=== PATIENT | female | born 1960 | race Caucasian/White ===

== ENCOUNTER 2019-06-20 04:19 | Emergency (ER) | payer BC ==
[2019-06-20] MEDS ORDERED: ALBUTEROL SULFATE HFA (90 MCG/PUFF) 8 GM MDI (1 MDI/ER DISP) IH ONE (06:47)
[2019-06-20] MEDS ORDERED: DEXAMETHASONE SOD PHOS INJ 10 MG/1 ML VIAL IM ONE (06:47)
[2019-06-20] MEDS ORDERED: ONDANSETRON HCL INJ/PF 4 MG/2 ML SDV IV ONE ×2 (06:49→10:28)
[2019-06-20] MEDS ORDERED: NORMAL SALINE 1000 ML 1,000 ML IV ONE (06:49)
--- NOTE | 2019-06-20 06:55 | ER Document Report ---
ED General - General Chief Complaint: Nausea/Vomiting/Diarrhea Stated Complaint: VOMITING/TROUBLE BREATHING Time Seen by Provider: 06/20/19 06:31 Notes: 59-year-old female presents emergency department complaining of abdominal cramping starting Saturday, vomiting starting and then diarrhea starting on Saturday with persistent vomiting. Denies any blood in the emesis or in the stool. Admits fevers to T-max of 103.5 associated with chills and diaphoresis. Also complains of rhinorrhea. Not exposed to anybody with similar symptoms and has not had similar episodes in the past. TRAVEL OUTSIDE OF THE [place] IN LAST 30 DAYS: No - Related Data Allergies/Adverse Reactions: No Known Allergies Allergy (Unverified 06/20/19 07:17) Past Medical History - General Information source: Patient - Social History Smoking Status: Never Smoker Frequency of alcohol use: None Drug Abuse: None Family History: Reviewed & Not Pertinent Patient has suicidal ideation: No Patient has homicidal ideation: No Review of Systems - Review of Systems Constitutional: See HPI EENT: No symptoms reported Cardiovascular: No symptoms reported Gastrointestinal: See HPI -: Yes All other systems reviewed and negative Physical Exam - Vital signs Vitals: Temp Pulse Resp BP Pulse Ox 98.4 F 101 H 16 131/67 H 95 06/20/19 04:24 06/20/19 04:24 06/20/19 04:24 06/20/19 04:24 06/20/19 04:24 Interpretation: Tachycardic - Notes Notes: GENERAL: Alert, interacts well. No acute distress. HEAD: Normocephalic, atraumatic EYES: Pupils equal, round and reactive to light, extraocular movements intact. ENT: Oral mucosa moist, tongue midline. NECK: Full range of motion, supple, trachea midline. LUNGS: Clear to auscultation bilaterally, no wheezes, rales or rhonchi, no respiratory distress. HEART: Regular rate and rhythm, no murmurs, gallops, rubs. ABDOMEN: Soft, bilateral lower quadrant tenderness to palpation with no guarding, rigidity or rebounding, nondistended, bowel sounds present in all 4 quadrants. EXTREMITIES: Moves all 4 extremities spontaneously, no edema, radial and dorsalis pedis pulses 2/4 bilaterally. No cyanosis. NEUROLOGICAL: Alert and oriented x3, normal speech. PSYCH: Normal mood, normal affect. SKIN: Warm, Dry, normal turgor, no rashes or lesions noted. Course - Re-evaluation Re-evalutation: 06/20/19 10:29 CBC unremarkable, CMP shows slight low potassium at 3.4, flu swabs negative, CT scan of the abdomen pelvis does not show any signs of surgical pathology or diverticulitis. Patient tolerating ice chips well, will try fluids and crackers after more Zofran, treat with Imodium, send stool sample. 06/20/19 12:15 Patient has been able to tolerate food, given Imodium and she did not vomit back up, patient has been unable to provide stool sample. Will be discharged home with stool specimen ordered, advised to use Imodium, Zofran. - Vital Signs Vital signs: Temp Pulse Resp BP Pulse Ox 98.4 F 101 H 16 131/67 H 95 06/20/19 04:24 06/20/19 04:24 06/20/19 04:24 06/20/19 04:24 06/20/19 04:24 - Laboratory Result Diagrams: 06/20/19 07:30 06/20/19 07:30 Laboratory results interpreted by me: 06/20/19 06/20/19 07:30 07:30 RDW 14.7 H Potassium 3.4 L Creatinine 0.50 L Glucose 119 H Alkaline Phosphatase 134 H Discharge - Discharge Clinical Impression: Nausea vomiting and diarrhea Condition: Stable Disposition: HOME, SELF-CARE Additional Instructions: I do not know what is causing your nausea, vomiting and diarrhea today. We did not find any signs of intestinal infection requiring antibiotics or surgery. Please use Imodium as directed on the box [id number]. You may use the Zofran and the Phenergan to help with your nausea. If you have another liquid bowel movement please bring it to the hospital for analysis along with the lab tests that I have ordered. Return for blood in your stool, increasing vomiting or diarrhea, increasing pain or any new or concerning symptoms. Prescriptions: Promethazine HCl [Phenergan 25 mg Tablet] 1 - 2 tab PO Q6H PRN #15 tablet PRN Reason: Ondansetron [Zofran Odt 4 mg Tablet] 1 - 2 tab PO Q4H PRN #15 tab.rapdis PRN Reason: For Nausea/Vomiting Forms: Follow-Up Laboratory Testing
[2019-06-20 07:44] LABS: ABSOLUTE EOSINOPHILS # (AUTO) 0.1 10^3/uL (0.0-0.6); ABSOLUTE LYMPHOCYTES (AUTO) 1.3 10^3/uL (0.5-4.7); ABSOLUTE MONOCYTES (AUTO) 0.5 10^3/uL (0.1-1.4); ABSOLUTE NEUT (AUTO) 4.2 10^3/uL (1.7-8.2); BASOPHILS % (AUTO) 0.7 % (0-2); EOSINOPHILS % (AUTO) 1.1 % (0-6); HEMATOCRIT 44.5 % (36.0-47.0); HEMOGLOBIN 14.7 g/dL (12.0-15.5); LYMPHOCYTES % (AUTO) 20.7 % (13-45); MEAN CORPUSCULAR HEMOGLOBIN 28.9 pg (27.0-33.4); MEAN CORPUSCULAR VOLUME 88 fl (80-97); MONOCYTES % (AUTO) 8.3 % (3-13); PLATELET COUNT 312 10^3/uL (150-450); RED BLOOD COUNT 5.08 10^6/uL (3.72-5.28); RED CELL DISTRIBUTION WIDTH 14.7 % (11.5-14.0); SEGMENTED NEUTROPHILS % (AUTO) 69.2 % (42-78); TOTAL CELLS COUNTED % (AUTO) 100 %; WHITE BLOOD COUNT 6.1 10^3/uL (4.0-10.5)
[2019-06-20 08:00] LABS: ALKALINE PHOSPHATASE 134 U/L (38-126); ANION GAP 9 (5-19); ASPARTATE AMINO TRANSFERASE 26 U/L (14-36); BILIRUBIN,DIRECT 0.3 mg/dL (0.0-0.4); BILIRUBIN,TOTAL 0.5 mg/dL (0.2-1.3); BLOOD UREA NITROGEN 9 mg/dL (7-20); CALCIUM 9.2 mg/dL (8.4-10.2); CARBON DIOXIDE 28 mmol/L (22-30); CHLORIDE 100 mmol/L (98-107); GLUCOSE 119 mg/dL (75-110); POTASSIUM 3.4 mmol/L (3.6-5.0); TOTAL PROTEIN 6.6 g/dL (6.3-8.2)
--- NOTE | 2019-06-20 09:56 | RADIOLOGY REPORT (SQ) ---
EXAM DESCRIPTION: CT ABD/PELVIS WITH IV ONLY COMPLETED DATE/TIME: 06/20/2019 9:23 am REASON FOR STUDY: LLQ and RLQ abd pain COMPARISON: None. TECHNIQUE: CT scan of the abdomen and pelvis performed using helical scanning technique with dynamic intravenous contrast injection. No oral contrast. Images reviewed with lung, soft tissue, and bone windows. Reconstructed coronal and sagittal MPR images reviewed. Delayed images for evaluation of the urinary system also acquired. All images stored on PACS. All CT scanners at this facility use dose modulation, iterative reconstruction, and/or weight based d osing when appropriate to reduce radiation dose to as low as reasonably achievable (ALARA). [facility]: Dose Right [facility]: CareDose [facility]: Dose Right [facility]: Teradose 4D [facility]: [employer] CONTRAST TYPE AND DOSE: contrast/concentration: Isovue mg/ml; Total Contrast Delivered: 99.0 ml; To ayesha Saline Delivered: 72.0 ml RENAL FUNCTION: GFR > 60. RADIATION DOSE: CT Rad equipment meets quality standard of care and radiation dose reduction techniq ues were employed. CTDIvol: 15.6 - 18.6 mGy. DLP: 1710 mGy-cm.. LIMITATIONS: None. FINDINGS: LOWER CHEST: Hiatal hernia. LIVER: Normal size. No masses. No dilated ducts. SPLEEN: Normal size. No focal lesions. PANCREAS: No masses. No significant calcifications. No adjacent inflammation or peripancreatic fluid collections. Pancreatic duct not dilated. GALLBLADDER: No identified stones by CT criteria. No inflammatory changes to suggest cholecystitis. ADRENAL GLANDS: No significant masses or asymmetry. RIGHT KIDNEY AND URETER: No solid masses. No significant calcifications. No hydronephrosis or hyd roureter. LEFT KIDNEY AND URETER: No solid masses. No significant calcifications. No hydronephrosis or hydr oureter. AORTA AND VESSELS: No aneurysm. RETROPERITONEUM: No retroperitoneal adenopathy, hemorrhage or masses. BOWEL AND PERITONEAL CAVITY: Sigmoid diverticulosis. No masses or inflammatory changes. No free flui d or peritoneal masses. APPENDIX: Normal. PELVIS: No mass. No free fluid. Normal bladder. ABDOMINAL WALL: No masses. No hernias. BONES: No significant or acute findings. OTHER: No other significant finding. IMPRESSION: Diverticulosis without evidence of diverticulitis. TECHNICAL DOCUMENTATION: JOB ID: [id number] Quality ID # [id number]: Final reports with documentation of one or more dose reduction techniques (e.g., Au tomated exposure control, adjustment of the mA and/or kV according to patient size, use of iterative reconstruction technique) 2010 [employer]- All Rights Reserved Reading location - IP/workstation name: [email or web address]
[2019-06-20 10:02] LABS: A TYPE INFLUENZA AG NEGATIVE (NEGATIVE); B INFLUENZA AG NEGATIVE (NEGATIVE)
[2019-06-20] MEDS ORDERED: LOPERAMIDE HCL 2 MG CAPSULE PO ONE (10:28)
[2019-06-20 12:52] VITALS: BP 153/96
== END 2019-06-20 12:52 | disposition home or self-care (01) ==
LOC: ER 04:19
DX: R11.2 Nausea with vomiting, unspecified (principal); R19.7 Diarrhea, unspecified; R10.9 Unspecified abdominal pain; R50.9 Fever, unspecified; R61 Generalized hyperhidrosis
CPT/HCPCS: 36415; 85025; 80053; 87804; 74177; J2405; J7030; 96361; 96374; 96376; 99284

== ENCOUNTER → 2019-12-02 | Outpatient (CLI) | payer BC ==
--- NOTE | 2019-12-02 13:40 | RADIOLOGY REPORT (SQ) ---
EXAM DESCRIPTION: FOOT LEFT COMPLETE COMPLETED DATE/TIME: 12/02/2019 1:12 pm REASON FOR STUDY: LT FOOT PAIN M79.672 PAIN IN LEFT FOOT COMPARISON: None. NUMBER OF VIEWS: Three views. TECHNIQUE: AP, lateral and oblique without weight bearing radiographic images acquired of the left f oot. LIMITATIONS: None. FINDINGS: MINERALIZATION: Normal. BONES: No acute fracture or dislocation. No worrisome bone lesions. No significant osteophytes. JOINTS: No erosions. No jorge-articular osteopenia. No chondrocalcinosis. SOFT TISSUES: No swelling. No calcifications. OTHER: No other significant finding. IMPRESSION: NEGATIVE STUDY OF THE LEFT FOOT. NO EXPLANATION FOR PAIN. TECHNICAL DOCUMENTATION: JOB ID: [id number] 2010 [employer]- All Rights Reserved Reading location - IP/workstation name: [email or web address]
== END ==
LOC: OD 12:38
PROVIDERS: ATTEND Nurse Practitioner Family
DX: M79.672 Pain in left foot (principal)

== ENCOUNTER → 2020-01-05 | Outpatient (CLI) | payer SELFPAY ==
--- NOTE | 2020-01-05 09:43 | ER [facility] ASSESSMENT REPORT ---
Intake - In the Last 14 days Have you traveled outside [place]?: No Have you been in close contact with someone CONFIRMED: No Worked in Healthcare?: No - Symptoms Subjective Fever([place] feverish): Yes Chills: No Muscule Aches: No Runny Nose: No Sore Throat: Yes Cough (New or worsening chronic cough): Yes Shortness of breath: Yes Nausea or Vomiting: No Headache: Yes Abdominal Pain: No Diarrhea(3 or more loose stools in last 24 hours): No - Do you have any of the following Chronic lung disease: Asthma or emphysema or COPD: No Cystic Fibrosis: No Diabetes: No High Blood Pressure: Yes Cardiovascular Disease: Yes Chronic Kidney Disease: No Chronic Liver Disease: No Chronic blood disorder like Sickle Cell Disease: No Weak immune system due to disease or medication: No Neurologic condition that limits movement: No Developmental delay - Moderate to Severe: No Recent (within past 2 weeks) or current : No Morbid Obesity (>100 pounds over ideal weight): No - Objective Temperature: 96.3 F Pulse Rate: 97 Respiratory Rate: 20 Blood Pressure: 194/84 O2 Sat by Pulse Oximetry: 94 Objective: Given above, testing performed: If Testing Performed: Test Specimen Type Sent to General - General Information source: Patient Notes: Patient presents to the [facility] with upper respiratory symptoms for evaluation and screening of possible coronavirus. She reports fever as high as 103 with sore throat cough and shortness of breath. Patient reports occasional headache. Patient does have underlying history of hypertension. Patient is a former smoker quitting 18 years ago. - HPI Quality of pain: Achy Associated symptoms: Chills, Nonproductive cough, Fever, Nausea, Shortness of breath, Sore throat. denies: Diarrhea Exacerbated by: Denies Relieved by: Denies - Related Data Allergies/Adverse Reactions: No Known Allergies Allergy (Unverified 06/20/19 07:17) Past Medical History - General Information source: Patient - Social History Smoking Status: Former Smoker Lives with: Spouse/Significant other Family History: Reviewed & Not Pertinent - Past Medical History Cardiac Medical History: Reports: Hx Hypertension Endocrine Medical History: Reports: Hx Hypothyroidism Malignancy Medical History: Reports: Other - Uterine Psychiatric Medical History: Reports: Hx Depression Past Surgical History: Reports: Hx Hysterectomy, Hx Orthopedic Surgery Physical Exam - General General appearance: Appears well, Alert In distress: None - HEENT Head: Normocephalic, Atraumatic Eyes: Normal Conjunctiva: Normal Nasal: Normal Mouth/Lips: Normal Mucous membranes: Normal Pharynx: Normal. No: Erythema, Exudate, Tonsillar hypertrophy Neck: Normal, Supple. No: Lymphadenopathy - Respiratory Respiratory status: No respiratory distress Chest status: Nontender Breath sounds: Nonproductive cough, Wheezing Chest palpation: Normal - Cardiovascular Rhythm: Regular Heart sounds: S1 appreciated, S2 appreciated - Extremities General upper extremity: Normal inspection, Normal ROM General lower extremity: Normal inspection, Normal ROM - Neurological Neuro grossly intact: Yes Cognition: Normal Hector Coma Scale Eye Opening: Spontaneous Hector Coma Scale Verbal: Oriented [place] Coma Scale Motor: Obeys Commands [place] Coma Scale Total: 15 - Psychological Associated symptoms: Normal affect, Normal mood - Skin Skin Temperature: Warm Skin Moisture: Dry Skin Color: Normal Diagnostic Results Laboratory Results: The patient was evaluated during the global Covid 19 pandemic, and that diagnosis was suspected/considered upon their initial presentation. Their evaluation, treatment and testing was consistent with current guidelines for patients who present with complaints or symptoms that may be related to Covid 19. Patient presents with upper respiratory symptoms worrisome for possible Covid 19. Patient does not have emergency worrying symptoms such as difficulty breathing, shortness of breath, chest pain, pressure, confusion or cyanosis. Patient appears suitable for discharge as she is not hypoxic or tachycardic. Patient is hypertensive although reports taking her medication earlier this morning. Patient is nontoxic in appearance. Will send prescription for albuterol and prednisone to pharmacy for patient scattered wheezing. Good return precautions have been discussed with patient, patient verbalized understanding and is agreeable with discharge plan of care at this time. Patient Education/Counseling Counseling/Education: Patient was provided with discharge information including: As a person under investigation for Covid 19, the [place] department of Health and Human Services, division of public health advises you to adhere to the following guidance until your test results are reported to you. If your test result is positive, you will receive additional information from your provider and your local health department at that time. Remain at home until you are cleared by the health provider or public health authorities. Keep a log of visitors to your home, notify any visitors to your home of your isolation status. If you plan to move to a new address or leave the county, notify the local health department in your County. Call your doctor or seek care if you have an urgent medical need. Before seeking medical care, call ahead to get instructions from the provider before arriving at the medical office clinic or hospital. Notify them that you are being tested for the virus that causes Covid 19 so that arrangements can be made, as necessary, to prevent transmission to others in the healthcare setting. Next, notify the local health department in your county. If a medical emergency arises and you need to call 911, inform the first responders that you are being tested for the virus that causes Covid 19. Next, notify the local health department in your county. [facility] Discharge - Discharge Clinical Impression: covid 19 screening Upper respiratory infection Qualifiers: URI type: unspecified URI Qualified Code(s): J06.9 - Acute upper respiratory infection, unspecified Condition: Stable Disposition: Home; Selfcare
[2020-01-05 09:48] VITALS: BP 194/84
[2020-01-05 10:30] LABS: A TYPE INFLUENZA AG NEGATIVE (NEGATIVE); B INFLUENZA AG NEGATIVE (NEGATIVE)
== END ==
LOC: RDC 09:06
PROVIDERS: ATTEND Nurse Practitioner Family
DX: Z20.828 Contact with and (suspected) exposure to other viral communicable diseases (principal)
CPT/HCPCS: 87070; 87635; 87804; 87880

== ENCOUNTER → 2020-07-25 | Outpatient (CLI) | payer BC ==
--- NOTE | 2020-07-25 17:02 | RADIOLOGY REPORT (SQ) ---
EXAM DESCRIPTION: SHOULDER RIGHT 2 OR MORE VIEWS IMAGES COMPLETED DATE/TIME: 07/25/2020 3:39 pm REASON FOR STUDY: ACUTE PAIN OF RT SHOULDER M25.511 PAIN IN RIGHT SHOULDER COMPARISON: None. NUMBER OF VIEWS: Three views. TECHNIQUE: Internal rotation, external rotation, and Y view images acquired of the right shoulder. LIMITATIONS: None. FINDINGS: MINERALIZATION: Normal. BONES: No acute fracture. No worrisome bone lesions. No significant osteophytes. GLENOHUMERAL JOINT: No significant findings. ACROMIOCLAVICULAR JOINT: No large osteophytes. SOFT TISSUES: No calcifications. VISUALIZED RIBS, SPINE, AND LUNG: No other significant finding. OTHER: No other significant finding. IMPRESSION: NEGATIVE STUDY OF THE RIGHT SHOULDER. NO EXPLANATION FOR PAIN. TECHNICAL DOCUMENTATION: JOB ID: [id number] 2010 [employer]- All Rights Reserved Reading location - IP/workstation name: [email or web address]
== END ==
LOC: OD 14:34
PROVIDERS: ATTEND Nurse Practitioner Family
DX: M25.511 Pain in right shoulder (principal)

== ENCOUNTER 2020-08-25 16:52 | Emergency (ER) | payer BC ==
[2020-08-25] MEDS ORDERED: ALBUTEROL SULFATE 0.083% NEB 2.5 MG/3 ML AMPUL NEB ONE (17:21)
--- NOTE | 2020-08-25 17:38 | ER Document Report ---
ED Medical Screen (RME) - General Chief Complaint: Shortness Of Breath Stated Complaint: SHORT OF BREATH,COUGH Time Seen by Provider: 08/25/20 17:16 Primary Care Provider: TERRY BECERRA FNP [Primary Care Provider] - Follow up as needed TRAVEL OUTSIDE OF THE [place] IN LAST 30 DAYS: No - HPI Notes: 08/25/20 17:37 60-year-old female presents to ED for evaluation of increased shortness of breath. Patient reports it is painful when she coughs. Notes that she checked her oxygen and it was low. She denies any cardiac or pulmonary history. Patient states that she does not believe she was exposed to anybody with Covid. She notes a fever at home. Denies any other complaints. - Related Data Allergies/Adverse Reactions: No Known Allergies Allergy (Unverified 06/20/19 07:17) Home Medications: synthroid. wellbutrin. losartom. atrovastatin Past Medical History - Social History Chew tobacco use (# tins/day): No Frequency of alcohol use: None Drug Abuse: None - Past Medical History Cardiac Medical History: Reports: Hx Hypertension Endocrine Medical History: Reports: Hx Hypothyroidism Psychiatric Medical History: Reports: Hx Depression Past Surgical History: Reports: Hx Hysterectomy, Hx Orthopedic Surgery Physical Exam - Vital signs Vitals: Temp Pulse Resp BP Pulse Ox 98.8 F 105 H 24 H 115/78 89 L 08/25/20 16:59 08/25/20 16:59 08/25/20 16:59 08/25/20 16:59 08/25/20 16:59 General: No acute distress. Alert and oriented x3. Sitting comfortably in a stretcher. Skin: Intact without any jaundice, pallor, or erythema. Warm and dry. HEENT: Normocephalic, atraumatic. Pupils are equal round reactive to light and accommodation. Extraocular movements are intact. TMs without erythema or bulging. Canals are clear. Nares patent without any discharge. Teeth in good condition. Pharynx without erythema, edema, or exudates. No tonsillar enlargement. Uvula is midline. Airway is patent. Neck: Supple with no lymphadenopathy. Full range of motion. Heart: Regular rate and rhythm. S1,S2. No murmurs, rubs, or gallops. Lungs: Diminished bases. No wheezes, rhonchi, rales. Equal chest expansion. No retractions. Abdomen: Soft, nontender to palpation, nondistended. Positive bowel sounds in all 4 quadrants. No hepatosplenomegaly. No masses. No CVA tenderness bilaterally. Neuro: GCS 15. Moving all extremities without discomfort. Psych: Mood and affect appropriate. Course - Vital Signs Vital signs: Temp Pulse Resp BP Pulse Ox 98.8 F 105 H 24 H 115/78 89 L 08/25/20 16:59 08/25/20 16:59 08/25/20 16:59 08/25/20 16:59 08/25/20 16:59 Doctor's Discharge - Discharge Referrals: TERRY BECERRA FNP [Primary Care Provider] - Follow up as needed
--- NOTE | 2020-08-25 18:29 | RADIOLOGY REPORT (SQ) ---
EXAM DESCRIPTION: CHEST SINGLE VIEW IMAGES COMPLETED DATE/TIME: 08/25/2020 6:21 pm REASON FOR STUDY: chest pain COMPARISON: None. EXAM PARAMETERS: NUMBER OF VIEWS: One view. TECHNIQUE: Single frontal radiographic view of the chest acquired. RADIATION DOSE: NA LIMITATIONS: None. FINDINGS: LUNGS AND PLEURA: Patchy opacification in the right mid and lower lung field. MEDIASTINUM AND HILAR STRUCTURES: No masses. Contour normal. HEART AND VASCULAR STRUCTURES: Heart normal in size. Normal vasculature. BONES: No acute findings. HARDWARE: None in the chest. OTHER: No other significant finding. IMPRESSION: Right lower lobe pneumonia. TECHNICAL DOCUMENTATION: JOB ID: [id number] 2010 [employer]- All Rights Reserved Reading location - IP/workstation name: [email or web address]
[2020-08-25 18:48] LABS: ABSOLUTE MONOCYTES (AUTO) 0.5 10^3/uL (0.1-1.4); ABSOLUTE NEUT (AUTO) 7.6 10^3/uL (1.7-8.2); BASOPHILS % (AUTO) 0.4 % (0-2); EOSINOPHILS % (AUTO) 0.2 % (0-6); HEMATOCRIT 38.8 % (36.0-47.0); HEMOGLOBIN 13.2 g/dL (12.0-15.5); LYMPHOCYTES % (AUTO) 10.7 % (13-45); MEAN CORPUSCULAR HEMOGLOBIN 30.1 pg (27.0-33.4); MEAN CORPUSCULAR HGB CONC 34.1 g/dL (32.0-36.0); MEAN CORPUSCULAR VOLUME 88 fl (80-97); MONOCYTES % (AUTO) 5.6 % (3-13); PLATELET COUNT 260 10^3/uL (150-450); RED BLOOD COUNT 4.39 10^6/uL (3.72-5.28); RED CELL DISTRIBUTION WIDTH 13.8 % (11.5-14.0); SEGMENTED NEUTROPHILS % (AUTO) 83.1 % (42-78); TOTAL CELLS COUNTED % (AUTO) 100 %; WHITE BLOOD COUNT 9.2 10^3/uL (4.0-10.5)
[2020-08-25 18:59] LABS: ALBUMIN 3.6 g/dL (3.5-5.0); ALKALINE PHOSPHATASE 98 U/L (38-126); ANION GAP 9 (5-19); ASPARTATE AMINO TRANSFERASE 45 U/L (14-36); BILIRUBIN,DIRECT 0.2 mg/dL (0.0-0.4); BILIRUBIN,TOTAL 0.7 mg/dL (0.2-1.3); BLOOD UREA NITROGEN 14 mg/dL (7-20); CARBON DIOXIDE 30 mmol/L (22-30); CHLORIDE 95 mmol/L (98-107); CREATINE KINASE 50 U/L (30-135); GLUCOSE 119 mg/dL (75-110); POTASSIUM 3.4 mmol/L (3.6-5.0); TOTAL PROTEIN 5.8 g/dL (6.3-8.2)
[2020-08-25 19:14] LABS: TROPONIN I < 0.012 ng/mL
--- NOTE | 2020-08-25 21:29 | EKG REPORT ---
SEVERITY:- NORMAL ECG - SINUS RHYTHM : Confirmed by: Rosey Mera MD 25-Aug-2020 21:28:30
[2020-08-25] MEDS ORDERED: AZITHROMYCIN 250 MG TABLET PO ONE (22:29)
[2020-08-25] MEDS ORDERED: IBUPROFEN 400 MG TABLET PO ONE (22:32)
[2020-08-25] MEDS ORDERED: DEXAMETHASONE 4 MG TABLET PO ONE (22:32)
--- NOTE | 2020-08-25 22:43 | ER Document Report ---
ED General - General Chief Complaint: Shortness Of Breath Stated Complaint: SHORT OF BREATH,COUGH Time Seen by Provider: 08/25/20 17:16 Primary Care Provider: TERRY BECERRA FNP [Primary Care Provider] - Follow up in 3-5 days Notes: 60-year-old female with hypertension, distant history of few types of cancer in remission. Past 8 years presents with approximately 2 days of fatigue with 1 day of right lateral inferior chest pain and a fever of 101 before she came in. Patient endorses a scant dry cough. Patient denies any smoking history, COPD, asthma history, lower extremity edema, recent travel/surgery/tr auma/immobilization, DVT/PE/hypercoagulability history in self or family, exogenous estrogen use, cardiac history, diabetes, HIV, immunocompromise history, vomiting or diarrhea, abdominal pain, drug use TRAVEL OUTSIDE OF THE [place] IN LAST 30 DAYS: No - Related Data Allergies/Adverse Reactions: No Known Allergies Allergy (Unverified 06/20/19 07:17) Home Medications: synthroid. wellbutrin. losartom. atrovastatin Past Medical History - General Information source: Patient, [facility] Records - Social History Smoking Status: Never Smoker Chew tobacco use (# tins/day): No Frequency of alcohol use: None Drug Abuse: None Family History: Reviewed & Not Pertinent - Past Medical History Cardiac Medical History: Reports: Hx Hypertension Endocrine Medical History: Reports: Hx Hypothyroidism Psychiatric Medical History: Reports: Hx Depression Past Surgical History: Reports: Hx Hysterectomy, Hx Orthopedic Surgery Review of Systems - Review of Systems Notes: REVIEW OF SYSTEMS: CONSTITUTIONAL : + fever, chills, or sweats. EENT: Denies recent cold/sinus symptoms, denies throat pain CARDIOVASCULAR: + chest pain, -OPHELIA RESPIRATORY: + cough, + shortness of breath. GASTROINTESTINAL: Denies abdominal pain, nausea/vomiting. GENITOURINARY: Denies difficulty urinating, painful urination. MUSCULOSKELETAL: Denies neck pain, back pain. SKIN: Denies rash or skin lesions. HEMATOLOGIC : Denies easy bruising or bleeding. LYMPHATIC: Denies swollen, enlarged glands. NEUROLOGICAL: Denies headache, denies change in gait. PSYCHIATRIC: Denies anxiety or stress or depression. Physical Exam - Vital signs Vitals: Temp Pulse Resp BP Pulse Ox 98.8 F 105 H 24 H 115/78 89 L 08/25/20 16:59 08/25/20 16:59 08/25/20 16:59 08/25/20 16:59 08/25/20 16:59 - Notes Notes: PHYSICAL EXAMINATION: GENERAL: Well-appearing, well-nourished, spry pleasant talkative middle-aged woman appearing stated age in no acute distress. HEAD: Atraumatic, normocephalic. EYES: Pupils equal round and appropriate constriction, sclera anicteric, conjunctiva are normal. ENT: nares patent, moist mucous membranes. NECK: Normal range of motion, supple without lymphadenopathy LUNGS: Slightly diminished breath sounds on right lower lung field, otherwise clear, no wheezing, good air movement, normal respiratory rate and effort with nasal cannula in place HEART: Regular rate and rhythm without murmurs ABDOMEN: Soft, nontender, no guarding, no masses, no CVAT EXTREMITIES: Normal range of motion, no pitting or edema. No cyanosis. NEUROLOGICAL: Awake, alert, conversing appropriately, moves all extremities spontaneously. PSYCH: Normal mood, normal affect. SKIN: Warm, Dry, normal turgor, no rashes or lesions noted. Course - Re-evaluation Re-evalutation: 08/25/20 22:45 Fever measured at home shortness of breath and cough, patient hypoxic off of nasal cannula on arrival and was given albuterol unclear if this contributed to patient's improvement, will assess patient on room air prior to making disposition decision. Likely pneumonia bacterial versus COVID-19, rule out PE given patient's tachycardia and distant cancer history but low pretest probability. No cardiac history and current symptoms atypical for ACS but given age and risk factors will obtain EKG and troponin. Patient very well-appearing, no signs of impending respiratory failure, mild tachycardia improved without intervention at this time. Patient's D-dimer was positive so I ordered CTA. 08/25/20 23:47 CT limited by suboptimal contrast however able to rule out any large central PEs and given presence of significant infection which is sufficient to explain positive D-dimer and patient's shortness of breath and hypoxia patient is still appropriate for discharge. I trialed patient on room air and patient is now maintaining saturations of 92 to 93% on room air. Patient's work of breathing is normal her rate of breathing is normal and patient feels significantly improved and desires discharge. Patient seemed to have improved on albuterol prior to arrival and therefore will set her with albuterol pump and gave dose of steroids in ED. Patient has pulse oximeter at home and I instructed her to closely watch her symptoms and if she feels worse at any point or if the pulse ox drops below 90% while she is at rest then she will come back to the emergency department immediately. Patient looks forward to discharge and is in agreement with follow-up and return to ED precautions and denies having any other questions or concerns at this time. Given that patient showed some bronchiectasis on CTA I changed her antibiotic coverage to Levaquin. CTA findings could also be due to COVID-19 infection which I also explained to patient. - Vital Signs Vital signs: Temp Pulse Resp BP Pulse Ox 98.3 F 105 H 24 H 107/93 H 91 L 08/26/20 00:10 08/25/20 16:59 08/26/20 00:10 08/26/20 00:10 08/26/20 00:10 - Laboratory Results Result Diagrams: 08/25/20 18:26 08/25/20 18:26 Laboratory Results Interpreted: 08/25/20 08/25/20 08/25/20 18:26 18:26 18:26 Lymph % (Auto) 10.7 L Seg Neutrophils % 83.1 H D-Dimer 1.41 H Sodium 134.1 L Potassium 3.4 L Chloride 95 L Creatinine 0.48 L Glucose 119 H AST 45 H ALT 42 H Total Protein 5.8 L Critical Laboratory Results Reviewed: No Critical Results - Radiology Results Critical Radiology Results Reviewed: No Critical Results - EKG Interpretation by Me Additional EKG results interpreted by me: 08/25/20 22:48 Sinus rhythm, no significant ST elevations or depressions, no significant T wave abnormalities Discharge - Discharge Clinical Impression: Hypoxia Pneumonia Qualifiers: Pneumonia type: due to unspecified organism Laterality: right Lung location: lower lobe of lung Qualified Code(s): J18.9 - Pneumonia, unspecified organism Disposition: HOME, SELF-CARE Additional Instructions: Levofloxacain You have been given an antibacterial agent, levofloxacin (Levaquin). This medicine is not related to the penicillins, sulfas, cephalosporins, or tetracyclines. It is often given to patients who are allergic to these drugs. It has been chosen for you either because other drugs are not appropriate, or because of the nature of your problem. Levaquin should not be taken with antacids, as these can decrease its effectiveness. It can be taken without regard to meals. LEVAQUIN SHOULD NOT BE TAKEN BY CHILDREN, NURSING WOMEN, OR WOMEN. Although Levaquin is usually well-tolerated, common side effects can include nausea and diarrhea. Contact your doctor if you experience any unusual symptoms while on this medication, such as joint pain or swelling, shortness of breath, wheezing, faintness, or hives. Patient was provided with discharge information including: As a person under investigation for Covid 19, the Count includes the [facility], division of public health advises you to adhere to the following guidance until your test results are reported to you. If your test result is positive, you will receive additional information from your provider and your local health department at that time. Remain at home until you are cleared by the health provider or public health authorities. Keep a log of visitors to your home, notify any visitors to your home of your isolation status. If you plan to move to a new address or leave the county, notify the local health department in your County. Call your doctor or seek care if you have an urgent medical need. Before seekin g medical care, call ahead to get instructions from the provider before arriving at the medical office clinic or hospital. Notify them that you are being tested for the virus that causes Covid 19 so that arrangements can be made, as necessary, to prevent transmission to others in the healthcare setting. Next, notify the local health department in your county. If a medical emergency arises and you need to call 911, inform the first responders that you are being tested for the virus that causes Covid 19. Next, notify the local health department in your county. Pneumonia Your examination indicates that you have pneumonia. This is an infection of the lung tissue, usually caused by bacteria or a virus. Symptoms include cough, fever, shaking chills, chest pain, shortness of breath, and coughing up bloody sputum. Treatment for bacterial pneumonia includes rest, antibiotics, increasing your clear liquid intake, a cool mist humidifier at your bedside, and fever medication. You should call the physician if you develop persistent vomiting, high fever that does not respond to fever medication, increasing shortness of breath, confusion, or lethargy. Also, failure to improve within two to three days is an indication for re-examination. Take all antibiotics as prescribed. Follow-up with your primary doctor within 3 days. If you have any worsening shortness of breath or your pulse oximeter shows readings below 90% while you are at rest, or you have any other worsening symptoms return to the emergency department immediately. Use albuterol inhaler with spacer every 4 hours as needed for shortness of breath if you feel improved after using it. You had some abnormalities on your lung imaging and it is very important that you follow-up with your primary doctor when you feel better to make sure that there is no underlying lung disease that led to this infection. Prescriptions: Inhaler, Assist Devices [Space Chamber] 1 each MC Q4HP PRN #1 spacer PRN Reason: Levofloxacin [Levaquin 750 mg Tablet] 750 mg PO DAILY #4 tablet Albuterol Sulfate [Proair HFA Inhalation Aerosol 8.5 gm MDI] 2 puff IH Q4H PRN #1 mdi PRN Reason: Referrals: TERRY BECERRA FNP [Primary Care Provider] - Follow up in 3-5 days
--- NOTE | 2020-08-25 23:20 | RADIOLOGY REPORT (SQ) ---
EXAM DESCRIPTION: CT CHEST WITH INTRAVENOUS CONTRAST CLINICAL HISTORY: Chest pain, positive d-dimer COMPARISON: None available. TECHNIQUE: CT of the chest was performed with intravenous contrast using pulmonary embolism protocol, followed by CTA of the pulmonary arterial vasculature, with 3D reconstruction of the pulmonary arterial vasculature. The patient was injected with 100 mL Omnipaque [address] exam was performed according to our departmental dose-optimization program, which includes one or more of the following dose reduction techniques: automated exposure control, adjustment of the mA and/or kV according to patient size, and/or use of iterative reconstruction technique. FINDINGS: Exam is significantly technically limited by suboptimal bolus timing. There are no large filling defects in the main pulmonary trunk, or first order of the visualized branches of the bilateral pulmonary arteries, to suggest a large central pulmonary embolism. There is no evidence of clinically significant thoracic aortic aneurysm or thoracic aortic dissection. There is no evidence of clinically significant pericardial effusion. There are scattered emphysematous changes. Focal ill-defined patchy groundglass opacity is present in the right upper lobe with multiple focal groundglass opacities in the right middle lobe and a more confluent consolidative opacity within the posterior right lower lobe. Right lower lobe findings are associated with bronchiectasis. There is no pathological axillary, supraclavicular, mediastinal or hilar lymphadenopathy. There is a moderate hiatal hernia. No suspicious lytic or blastic osseous lesions are identified. The visualized upper abdominal structures seen on the exam appear unremarkable. IMPRESSION: Exam is technically limited by suboptimal bolus timing. 1. Patchy ill-defined groundglass opacities within the right hemithorax with more confluent consolidative opacity in the right lower lobe. Findings are suggestive of a multifocal infectious process. However, the possibility of an underlying lesion is not excluded and clinical correlation is advised with attention on follow-up. 2. Findings are in the setting of scattered emphysematous changes. 3. Technically limited evaluation of the pulmonary arteries. No large central pulmonary embolism is identified.
[2020-08-25] MEDS ORDERED: LEVOFLOXACIN 750 MG TABLET PO ONE (23:41)
[2020-08-25] MEDS ORDERED: POTASSIUM CHLORIDE 10 MEQ TABLET.ER PO ONE (23:49)
[2020-08-26 00:24] VITALS: BP 107/93
== END 2020-08-26 00:24 | disposition home or self-care (01) ==
LOC: ER 16:52
DX: J18.9 Pneumonia, unspecified organism (principal); R09.02 Hypoxemia; R53.83 Other fatigue; R07.9 Chest pain, unspecified; R06.02 Shortness of breath; R05 Cough; R00.0 Tachycardia, unspecified; R79.89 Other specified abnormal findings of blood chemistry; I10 Essential (primary) hypertension; E03.9 Hypothyroidism, unspecified; F32.9 Major depressive disorder, single episode, unspecified; Z79.899 Other long term (current) drug therapy; Z20.828 Contact with and (suspected) exposure to other viral communicable diseases
CPT/HCPCS: 93005; 94640; 99285; 36415; 82553; 82550; 85025; 80053; 84484; 85379; 71045; 71275; 93010; U0003; J8540; J3490; J7613; C9803; 87635

== ENCOUNTER → 2020-09-16 | Outpatient (CLI) | payer BC | LOC: WI 09:36 | PROVIDERS: ATTEND Nurse Practitioner Family | DX: Z12.31 Encounter for screening mammogram for malignant neoplasm of breast (principal) | CPT/HCPCS: 77067 ==

== ENCOUNTER 2020-09-19 19:04 | Emergency (ER) | payer BC ==
--- NOTE | 2020-09-19 20:32 | ER Document Report ---
ED Medical Screen (RME) - General Chief Complaint: Fever Stated Complaint: FEVER,DIARRHEA,VOMITING Time Seen by Provider: 09/19/20 20:26 Primary Care Provider: TERRY BECERRA FNP [Primary Care Provider] - Follow up as needed Notes: HPI: 60-year-old female presenting for multiple episodes of diarrhea every day for the last 3 days. Initially also had some nausea vomiting and fevers on day 1 but no fevers or nausea the last 24 hours. Denies any abdominal pain. Took [id number] Imodium but could not stop the diarrhea. No recent antibiotic use. No recent travel PHYSICAL EXAMINATION: Obese abdomen, soft to palpation with no tenderness on exam. I have greeted and performed a rapid initial assessment of this patient. A comprehensive ED assessment and evaluation of the patient, analysis of test re sults and completion of medical decision making process will be conducted by an additional ED providers. Please note that clinical decision making for this patient was made during the 2019 pandemic of novel coronavirus which caused a significant strain on the healthcare system including at this particular facility. Criteria for admission discharge and level of care decisions as well as treatment decisions have necessarily changed TRAVEL OUTSIDE OF THE [place] IN LAST 30 DAYS: No - Related Data Allergies/Adverse Reactions: No Known Allergies Allergy (Unverified 06/20/19 07:17) Past Medical History - Past Medical History Cardiac Medical History: Reports: Hx Hypertension Endocrine Medical History: Reports: Hx Hypothyroidism Psychiatric Medical History: Reports: Hx Depression Past Surgical History: Reports: Hx Hysterectomy, Hx Orthopedic Surgery Physical Exam - Vital signs Vitals: Temp Pulse Resp BP Pulse Ox 98.8 F 102 H 16 130/87 H 97 09/19/20 19:08 09/19/20 19:08 09/19/20 19:08 09/19/20 19:08 09/19/20 19:08 Course - Vital Signs Vital signs: Temp Pulse Resp BP Pulse Ox 98.8 F 102 H 16 130/87 H 97 09/19/20 19:08 09/19/20 19:08 09/19/20 19:08 09/19/20 19:08 09/19/20 19:08 Doctor's Discharge - Discharge Referrals: TERRY BECERRA FNP [Primary Care Provider] - Follow up as needed
[2020-09-19 21:19] LABS: ABSOLUTE LYMPHOCYTES (AUTO) 1.3 10^3/uL (0.5-4.7); ABSOLUTE MONOCYTES (AUTO) 0.7 10^3/uL (0.1-1.4); BASOPHILS % (AUTO) 0.3 % (0-2); EOSINOPHILS % (AUTO) 0.1 % (0-6); HEMATOCRIT 42.3 % (36.0-47.0); HEMOGLOBIN 14.6 g/dL (12.0-15.5); LYMPHOCYTES % (AUTO) 16.6 % (13-45); MEAN CORPUSCULAR HEMOGLOBIN 30.1 pg (27.0-33.4); MEAN CORPUSCULAR HGB CONC 34.5 g/dL (32.0-36.0); MEAN CORPUSCULAR VOLUME 87 fl (80-97); MONOCYTES % (AUTO) 9.2 % (3-13); PLATELET COUNT 293 10^3/uL (150-450); RED BLOOD COUNT 4.84 10^6/uL (3.72-5.28); RED CELL DISTRIBUTION WIDTH 13.9 % (11.5-14.0); SEGMENTED NEUTROPHILS % (AUTO) 73.8 % (42-78); TOTAL CELLS COUNTED % (AUTO) 100 %; WHITE BLOOD COUNT 8.1 10^3/uL (4.0-10.5)
[2020-09-19 21:36] LABS: ALBUMIN 4.4 g/dL (3.5-5.0); ALKALINE PHOSPHATASE 137 U/L (38-126); ANION GAP 10 (5-19); ASPARTATE AMINO TRANSFERASE 28 U/L (14-36); BILIRUBIN,DIRECT 0.3 mg/dL (0.0-0.4); BILIRUBIN,TOTAL 0.5 mg/dL (0.2-1.3); BLOOD UREA NITROGEN 12 mg/dL (7-20); CALCIUM 9.2 mg/dL (8.4-10.2); CARBON DIOXIDE 28 mmol/L (22-30); CHLORIDE 93 mmol/L (98-107); GLUCOSE 121 mg/dL (75-110); POTASSIUM 3.6 mmol/L (3.6-5.0)
--- NOTE | 2020-09-19 21:36 | ER Document Report ---
ED General - General Chief Complaint: Diarrhea Stated Complaint: FEVER,DIARRHEA,VOMITING Time Seen by Provider: 09/19/20 20:26 Primary Care Provider: TERRY BECERRA FNP [Primary Care Provider] - Follow up as needed TRAVEL OUTSIDE OF THE [place] IN LAST 30 DAYS: No - HPI Notes: 60-year-old female presents with diarrhea. Patient states that she has had watery diarrhea for the past 3 days. She denies seeing blood in stool. She denies abdominal pain. Patient states that she took a dose of Imodium today which did not change her diarrhea. She reports diarrhea with any p.o. intake. She had one episode of vomiting this morning, no vomiting since. She reports that she was on Levaquin in August. - Related Data Allergies/Adverse Reactions: No Known Allergies Allergy (Unverified 06/20/19 07:17) Home Medications: Levothyroxine, Atorvastatin, Lisinopril, Effexor, Wellbutrin Past Medical History - General Information source: Patient - Social History Smoking Status: Never Smoker Family History: Reviewed & Not Pertinent Patient has homicidal ideation: No - Past Medical History Cardiac Medical History: Reports: Hx Hypertension Endocrine Medical History: Reports: Hx Hypothyroidism Psychiatric Medical History: Reports: Hx Depression Past Surgical History: Reports: Hx Hysterectomy, Hx Orthopedic Surgery Review of Systems - Review of Systems Constitutional: denies: Fever EENT: No symptoms reported Cardiovascular: No symptoms reported Respiratory: No symptoms reported Gastrointestinal: See HPI Genitourinary: No symptoms reported Female Genitourinary: No symptoms reported Musculoskeletal: No symptoms reported Skin: No symptoms reported Hematologic/Lymphatic: No symptoms reported Neurological/Psychological: No symptoms reported Physical Exam - Vital signs Vitals: Temp Pulse Resp BP Pulse Ox 98.8 F 102 H 16 130/87 H 97 09/19/20 19:08 09/19/20 19:08 09/19/20 19:08 09/19/20 19:08 09/19/20 19:08 - General General appearance: Appears well, Alert In distress: None - HEENT Head: Normocephalic, Atraumatic Extraocular movements intact: Yes Pupils: PERRL - Respiratory Breath sounds: Normal - Cardiovascular Rhythm: Regular Heart sounds: Normal auscultation - Abdominal Distension: No distension Bowel sounds: Normal Tenderness: Nontender. No: Guarding, Rebound - Extremities General upper extremity: Normal ROM General lower extremity: Normal ROM - Neurological Neuro grossly intact: Yes Cognition: Normal Orientation: AAOx4 - Psychological Associated symptoms: Normal affect - Skin Skin Temperature: Warm Course - Re-evaluation Re-evalutation: 60-year-old female with watery diarrhea x3 days. Was on antibiotics about a month ago, no antibiotics since. Denies previous history of bowel disease. She is alert and well-appearing on exam, no focal area of tenderness. Hem odynamically stable. Labs done through triage have resulted. No leukocytosis or left shift. No acute anemia. Slight hyponatremia and hypochloremia, likely due to GI losses. Creatinine within normal limits. No elevation of T bili, LFTs or lipase. No UTI. CT abdomen was ordered through triage. Feel this is reasonable to evaluate for colitis versus diverticulitis. Viral etiology is a possibility, patient had Covid test performed. Will also order stool culture and C. difficile testing. 09/20/20 01:02 CT with evidence of colitis. Cipro/Flagyl ordered. Updated patient on results of CT. No stool specimen produced while in the emergency department. Return precautions discussed, stable at time of discharge. - Vital Signs Vital signs: Temp Pulse Resp BP Pulse Ox 98.6 F 100 15 124/70 97 09/20/20 00:49 09/20/20 00:49 09/20/20 00:49 09/20/20 00:49 09/20/20 00:49 - Laboratory Results Result Diagrams: 09/19/20 20:40 09/19/20 20:40 Laboratory Results Interpreted: 09/19/20 09/19/20 20:40 23:06 Sodium 130.6 L Chloride 93 L Glucose 121 H Alkaline Phosphatase 137 H Urine Ketones TRACE H Urine Blood SMALL H Ur Leukocyte Esterase SMALL H Critical Laboratory Results Reviewed: No Critical Results - Radiology Results Critical Radiology Results Reviewed: No Critical Results Discharge - Discharge Clinical Impression: Colitis Disposition: HOME, SELF-CARE Instructions: Colitis, Nonspecific ([facility]) Additional Instructions: Begin antibiotics as prescribed. Would avoid using any antidiarrheal medications. Your Covid swab should result in about 2 to 3 days. Return to the emergency department for fever, worsening pain, inability tolerate food/drink, or any other concerning symptoms. Prescriptions: Ciprofloxacin HCl [Cipro 500 mg Tablet] 500 mg PO BID 7 Days #14 tablet Metronidazole [Flagyl 500 mg Tablet] 500 mg PO Q6H 7 Days #28 tablet Referrals: TERRY BECERRA FNP [Primary Care Provider] - Follow up as needed
[2020-09-19] MEDS ORDERED: RINGERS SOLUTION,LACTATED 1,000 ML IV ONE (21:46)
[2020-09-19 23:16] LABS: APPEARANCE,URINE CLEAR; BILIRUBIN,URINE NEGATIVE (NEGATIVE); COLOR,URINE YELLOW; GLUCOSE, URINE NEGATIVE (NEGATIVE); KETONES,URINE TRACE mg/dL (NEGATIVE); LEUKOCYTE ESTERASE,URINE SMALL (NEGATIVE); NITRITE,URINE NEGATIVE (NEGATIVE); PROTEIN,URINE NEGATIVE (NEGATIVE); URINE SPECIFIC GRAVITY 1.004; UROBILINOGEN,URINE NEGATIVE mg/dL (<2.0)
[2020-09-20 00:50] VITALS: BP 124/70
--- NOTE | 2020-09-20 00:53 | RADIOLOGY REPORT (SQ) ---
CT abdomen and pelvis with contrast on 09/20/2020 at 12:13 AM CLINICAL INDICATION: Diarrhea TECHNIQUE: Multiple axial images are obtained throughout the abdomen and pelvis following the administration of IV and oral contrast. This exam was performed according to our departmental dose-optimization program, which includes automated exposure control, adjustment of the mA and/or kV according to patient size and/or use of iterative reconstruction technique. Total DLP is 1722.1 mGy*cm. COMPARISON: CT chest and upper abdomen from 08/25/[address] abdomen and pelvis from 06/20/2019 FINDINGS: Abdomen: The lung bases are clear. There is a small to moderate size hiatal hernia. There is mild fatty infiltration of the liver. The solid abdominal organs are otherwise unremarkable. Mild vascular calcifications are noted. There is no abdominal adenopathy. There is no free fluid or free air within the abdomen. There is bowel wall thickening of the mid to distal descending colon extending into the sigmoid colon consistent with a colitis. Most likely this represents an infectious colitis with Crohn's disease or ischemia felt less likely but please correlate clinically. There is no evidence of obstruction. Pelvis: The patient is status post hysterectomy. No free fluid is noted in the pelvis. There is mild diverticulosis. The pelvic portion of the GI tract including the appendix is otherwise unremarkable. There is no pelvic adenopathy. No acute bony abnormality is noted. There is grade 1 spondylolisthesis at L5-S1 secondary to degenerative facet disease. IMPRESSION: 1. Findings consistent with a left-sided colitis, most likely an infectious colitis but please correlate clinically. 2. Hiatal hernia. 3. Mild fatty infiltration of the liver.
[2020-09-20] MEDS ORDERED: METRONIDAZOLE 500 MG TABLET PO ONE (00:56)
[2020-09-20] MEDS ORDERED: CIPROFLOXACIN HCL 500 MG TABLET PO ONE (00:56)
== END 2020-09-20 01:15 | disposition home or self-care (01) ==
LOC: ER 19:04
DX: K52.9 Noninfective gastroenteritis and colitis, unspecified (principal); K44.9 Diaphragmatic hernia without obstruction or gangrene; K76.0 Fatty (change of) liver, not elsewhere classified; E87.1 Hypo-osmolality and hyponatremia; E87.8 Other disorders of electrolyte and fluid balance, not elsewhere classified; I10 Essential (primary) hypertension; E03.9 Hypothyroidism, unspecified; F32.9 Major depressive disorder, single episode, unspecified; Z79.899 Other long term (current) drug therapy; Z20.822 Contact with and (suspected) exposure to COVID-19
CPT/HCPCS: 99285; 96360; 36415; 83690; 85025; 80053; 81001; 74177; U0003; J7120; C9803; 87635